=== PATIENT | female | born 1955 | race Caucasian/White ===

== ENCOUNTER 2016-12-18 08:57 | Emergency (ER) | payer OTHER ==
[2016-12-18 09:09] VITALS: BMI 29.0
[2016-12-18] MEDS ORDERED: guaiFENesin/CODEINE 10 ML UNIT-DOSE CUPS PO ONE (10:02)
[2016-12-18] MEDS ORDERED: guaiFENesin/CODEINE 5 ML UNIT-DOSE CUPS PO ONE (10:11)
--- NOTE | 2016-12-18 10:29 | PDOC ---
History of Present Illness - General Chief Complaint: Shortness of Breath Stated Complaint: COUGH, NAUEA, FEVER, CONGESTION Time Seen by Provider: 12/18/16 09:48 History Source: Patient Exam Limitations: No Limitations - History of Present Illness Initial Comments: 12/18/16 10:32 61-year-old female brought in with family for evaluation of ongoing cough for the past 3 weeks worsening in severity over the past 5 days patient complaints of dry hacking cough worse in the evening and states has had no fever, hemoptysis but does complain of chills intermittently. Patient states history of hypertension and dyslipidemia and is followed by Dr. Reed who she has not seen since onset of symptoms. Patient denies weight loss, recent travel, recent sick contacts, chest pain, lower extremity edema, or cardiac history. Timing/Duration: reports: other (3 weeks cough) Severity: reports: moderate Possible Cause: Yes: no prior episodes Modifying Factors: improves with: coughing Past History - Past Medical History Allergies/Adverse Reactions: Allergies Allergy/AdvReac Type Severity Reaction Status Date / Time No Known Allergies Allergy Verified 12/18/16 09:04 Home Medications: Ambulatory Orders Amlodipine Besylate 10 mg PO DAILY 12/18/16 Benzonatate 100 mg PO TID 12/18/16 Naproxen [Naprosyn -] 500 mg PO BID 12/18/16 Simvastatin 40 mg PO DAILY 12/18/16 Anemia: No Asthma: No Cancer: No Cardiac Disorders: No CVA: No COPD: No CHF: No Dementia: No Diabetes: No GI Disorders: No Disorders: No HTN: Yes Hypercholesterolemia: Yes Liver Disease: No Seizures: No Thyroid Disease: No - Surgical History Abdominal Surgery: Yes Appendectomy: No Cardiac Surgery: No Cholecystectomy: No Lung Surgery: No Neurologic Surgery: No Orthopedic Surgery: No - Psycho/Social/Smoking Cessation Hx Anxiety: No Suicidal Ideation: No Smoking History: Never smoked Have you smoked in the past 12 months: No Information on smoking cessation initiated: No Hx Alcohol Use: No Drug/Substance Use Hx: No Substance Use Type: None Patient Lives Alone: No Lives with/in: spouse/SO Review of Systems - Review of Systems Able to Perform ROS?: Yes Constitutional: Yes: Chills. No: Fever, Loss of Appetite, Malaise, Night Sweats HEENTM: No: Symptoms Reported Respiratory: Yes: Cough. No: Shortness of Breath, Wheezing, Productive cough, Hemoptysis Cardiac (ROS): No: Symptoms Reported ABD/GI: No: Symptoms Reported : No: Symptoms Reported Musculoskeletal: No: Symptoms Reported Integumentary: No: Symptoms Reported Neurological: No: Symptoms reported *Physical Exam - Vital Signs Last Vital Signs Temp Pulse Resp BP Pulse Ox 98.3 F 93 H 18 121/81 99 12/18/16 09:06 12/18/16 09:06 12/18/16 09:06 12/18/16 09:06 12/18/16 09:06 - Physical Exam General Appearance: Yes: Nourished, Appropriately Dressed. No: Apparent Distress HEENT: positive: EOMI, NORBERT, Pharynx Normal. negative: Pale Conjunctivae Neck: positive: Normal Thyroid, Supple Respiratory/Chest: positive: Crackles (inspiratory with rhonchi to left lower base). negative: Chest Tender, Respiratory Distress, Accessory Muscle Use Cardiovascular: positive: Regular Rhythm, Regular Rate. negative: Murmur Gastrointestinal/Abdominal: positive: Soft. negative: Tenderness Extremity: negative: Pedal Edema Integumentary: positive: Normal Color, Warm, Moist Neurologic: positive: Motor Strength 5/5 ( ambulatory) ED Treatment Course - LABORATORY CBC & Chemistry Diagram: 12/18/16 10:06 12/18/16 10:39 - RADIOLOGY Radiology Studies Ordered: Category Date Time Status CHEST X-RAY PORTABLE* [RAD] Stat Radiology 12/18/16 10:02 Ordered Medical Decision Making - Medical Decision Making 12/18/16 10:41 Patient with persistent but worsening cough x 3 weeks with chills moccasins, weight loss, or night sweats. Patient he would dry hacking cough on exam. Patient had inspiratory crackles/rhonchi to the left lower base concerning for pneumonia. Patient ordered for labs, x-ray, Robitussin with codeine and will order saline nebulizer if no improvement. 12/18/16 11:52 Laboratory Tests 12/18/16 12/18/16 10:06 10:39 WBC 5.0 Hgb 13.6 Hct 40.1 Plt Count 232 Neutrophils % 45.0 Sodium 138 Potassium 3.8 Chloride 100 Carbon Dioxide 27 Anion Gap 11 BUN 11 Creatinine 0.7 Creat Clearance w eGFR > 60 Random Glucose 94 Calcium 8.9 Total Bilirubin 0.4 AST 25 ALT 28 Laboratory Tests 12/18/16 10:06 Monocytes % 16.4 H Chest x-ray shows no acute findings. Patient states when better after receiving the Robitussin with codeine and saline nebulizer. Patient ordered for monoscreen secondary to elevated monocytes. 12/18/16 13:40 Laboratory Tests 12/18/16 12:02 Monoscreen Negative Patient states feeling much better after receiving the above medication will discharge patient home with azithromycin inhaler and Robitussin with codeine for treatment of acute bronchitis. *DC/Admit/Observation/Transfer Diagnosis at time of Disposition: Bronchitis - Discharge Dispostion Disposition: HOME Condition at time of disposition: Improved - Referrals Referrals: Inderjit Reed MD [Primary Care Provider] - - Patient Instructions Printed Discharge Instructions: DI for Acute Bronchitis Additional Instructions: Please take antibiotics as prescribed use inhaler as needed for coughing and use Robitussin with codeine to control your cough. Follow-up with Dr. Reed on Saturday. Drink plenty of fluids and rest Your voice.
[2016-12-18] MEDS ORDERED: SODIUM CHLORIDE FOR INHALATION 3 ML VIAL.NEB IH ONE (10:33)
[2016-12-18 11:05] LABS: BASOPHIL 0.8 % (0-2.0); EOSINOPHIL 1.8 % (0-4.5); MCH 28.4 pg (25.7-33.7); MCHC 33.8 g/dl (32.0-36.0); MEAN CELL VOLUME 84.1 fl (80-96); MEAN PLT VOLUME 8.1 fl (7.5-11.1); PLATELET COUNT 232 K/MM3 (134-434); RDW 14.5 % (11.6-15.6)
[2016-12-18 11:21] LABS: ALBUMIN 3.7 g/dl (3.4-5.0); ANION GAP 11 (8-16); CALCIUM 8.9 mg/dL (8.5-10.1); CO2 27 mmol/L (21-32); CREATININE 0.7 mg/dL (0.55-1.02); GLUCOSE,RANDOM 94 mg/dL (74-106); SGOT/AST 25 U/L (15-37); SGPT/ALT 28 U/L (12-78)
[2016-12-18 11:23] LABS: ALK PHOS 89 U/L (45-117); BILIRUBIN,TOTAL 0.4 mg/dL (0.2-1.0); TOT PROT 7.5 g/dl (6.4-8.2)
[2016-12-18 13:49] VITALS: BP 127/60; PULSE 90; TEMP 98.7
--- NOTE | 2016-12-20 07:59 | PDOC ---
*Physical Exam - Vital Signs Last Vital Signs Temp Pulse Resp BP Pulse Ox 98.7 F 90 18 127/60 97 12/18/16 13:48 12/18/16 13:48 12/18/16 13:48 12/18/16 13:48 12/18/16 13:48 - Physical Exam Comments: 12/20/16 07:58 MIDLEVEL NOTE Pt seen by Midlevel Provider under my direct supervision. Pt interviewed and examined. Ancillary studies reviewed. I agree with plan as outlined by Midlevel Provider. Chest x-ray-NAD Laboratory Tests 12/18/16 12/18/16 12/18/16 10:06 10:39 12:02 WBC 5.0 RBC 4.77 Hgb 13.6 Hct 40.1 MCV 84.1 MCHC 33.8 RDW 14.5 Plt Count 232 MPV 8.1 Neutrophils % 45.0 Lymphocytes % 36.0 Monocytes % 16.4 H Eosinophils % 1.8 Basophils % 0.8 Sodium 138 Potassium 3.8 Chloride 100 Carbon Dioxide 27 Anion Gap 11 BUN 11 Creatinine 0.7 Creat Clearance w eGFR > 60 Random Glucose 94 Calcium 8.9 Total Bilirubin 0.4 AST 25 ALT 28 Alkaline Phosphatase 89 Total Protein 7.5 Albumin 3.7 Monoscreen Negative Vital Signs (72 hours) 12/18/16 12/18/16 09:06 13:48 Temperature 98.3 F 98.7 F Pulse Rate 93 H Pulse Rate [ 90 Apical] Respiratory 18 18 Rate Blood Pressure 121/81 Blood Pressure 127/60 [Right Arm] O2 Sat by Pulse 99 97 Oximetry (%) Impression-acute wheezy bronchitis ED Treatment Course - LABORATORY CBC & Chemistry Diagram: 12/18/16 10:06 12/18/16 10:39 - ADDITIONAL ORDERS Additional order review: 12/18/16 10:15 Blood Culture - Preliminary Blood - Peripheral Venous NO GROWTH OBTAINED AFTER 24 HOURS, INCUBATION TO CONTINUE FOR 4 DAYS. 12/18/16 10:38 Blood Culture - Preliminary Blood - Peripheral Venous NO GROWTH OBTAINED AFTER 24 HOURS, INCUBATION TO CONTINUE FOR 4 DAYS. 12/18/16 10:06 RBC 4.77 MCV 84.1 MCHC 33.8 RDW 14.5 MPV 8.1 Neutrophils % 45.0 Lymphocytes % 36.0 Monocytes % 16.4 H Eosinophils % 1.8 Basophils % 0.8 - Medications Given in the ED: ED Medications Discontinued Medications Generic Name Dose Route Start Last Admin Trade Name Brendenq PRN Reason Stop Dose Admin Guaifenesin/Codeine Phosphate 10 ml 12/18/16 10:02 12/18/16 10:17 Robitussin Ac - PO 12/18/16 10:03 10 ml ONCE ONE Administration Sodium Chloride 3 ml 12/18/16 10:33 12/18/16 10:45 Normal Saline For Inhalation - IH 12/18/16 10:34 3 ml ONCE ONE Administration *DC/Admit/Observation/Transfer Diagnosis at time of Disposition: Bronchitis - Discharge Dispostion Disposition: HOME Condition at time of disposition: Improved - Prescriptions Prescriptions: Guaifenesin AC [Robitussin AC] 10 ml PO QID PRN #100 ml MDD 40 PRN Reason: Cough Albuterol Sulfate Inhaler - [Ventolin HFA Inhaler -] 1 - 2 inh PO Q4H PRN #1 inhaler PRN Reason: Cough Azithromycin [Zithromax Tri-Alfonzo (3 DAYS) -] 500 mg PO DAILY #3 tablet - Referrals Referrals: Inderjit Reed MD [Primary Care Provider] - - Patient Instructions Printed Discharge Instructions: DI for Acute Bronchitis Additional Instructions: Please take antibiotics as prescribed use inhaler as needed for coughing and use Robitussin with codeine to control your cough. Follow-up with Dr. Reed on Saturday. Drink plenty of fluids and rest Your voice. - Post Discharge Activity
== END 2016-12-18 13:51 | disposition home or self-care (01) ==
LOC: JER 08:57
PROC: 3E0337Z Introduction of Electrolytic and Water Balance Substance into Peripheral Vein, Percutaneous Approach (ICD-10-PCS; principal; 2016-12-18)
DX: J40 Bronchitis, not specified as acute or chronic (principal); I10 Essential (primary) hypertension; E78.00 Pure hypercholesterolemia, unspecified
CPT/HCPCS: 36415; 71010-TC; 80053; 85025; 86308; 87040; 94640; 99283-25

== ENCOUNTER 2016-12-26 15:40 | Emergency (ER) | payer OTHER ==
[2016-12-26 15:47] VITALS: BMI 27.3
[2016-12-26] MEDS ORDERED: dilTIAZem HCL 50 MG/10 ML - 10 ML VIAL IVPUSH ONE (16:22)
[2016-12-26] MEDS ORDERED: DILTIAZEM INJECTION 125 MG in DEXTROSE 5%-WATER - 100 ML IVPB SCH (16:30)
[2016-12-26 16:45] LABS: BASOPHIL 0.9 % (0-2.0); EOSINOPHIL 1.5 % (0-4.5); MCH 27.9 pg (25.7-33.7); MCHC 33.7 g/dl (32.0-36.0); MEAN CELL VOLUME 82.9 fl (80-96); MEAN PLT VOLUME 7.4 fl (7.5-11.1); NEUTROPHILS 48.4 % (42.8-82.8); PLATELET COUNT 263 K/MM3 (134-434); RDW 14.6 % (11.6-15.6); WHITE BLOOD COUNT 4.7 K/mm3 (4.0-10.0)
[2016-12-26 17:29] LABS: ALBUMIN 3.5 g/dl (3.4-5.0); ANION GAP 13 (8-16); CALCIUM 8.5 mg/dL (8.5-10.1); CO2 24 mmol/L (21-32); CREATININE 0.7 mg/dL (0.55-1.02); GLUCOSE,RANDOM 93 mg/dL (74-106); SGOT/AST 25 U/L (15-37); SGPT/ALT 32 U/L (12-78)
[2016-12-26 17:31] LABS: ALK PHOS 84 U/L (45-117); BILIRUBIN,TOTAL 0.3 mg/dL (0.2-1.0); TOT PROT 7.3 g/dl (6.4-8.2)
[2016-12-26 17:50] LABS: TROPONIN I < 0.02 ng/ml (0.00-0.05)
[2016-12-26 18:27] LABS: INR 1.14 (0.82-1.09); PROTHROMBIN TIME (PATIENT) 12.6 SEC (9.98-11.88)
[2016-12-26] MEDS ORDERED: methylPREDNISolone NA SUCC 125 MG/2 ML VIAL ONE (18:52)
[2016-12-26] MEDS ORDERED: ALBUTEROL SO4 2.5/IPRATROPIUM 0.5 INH SOL 3 ML VIAL.NEB. NEB ONE ×2 (18:52→18:55)
[2016-12-26] MEDS ORDERED: ALBUTEROL SO4 0.083% IH SOL 2.5 MG/3 ML VIAL.NEB. NEB ONE (18:55)
[2016-12-26] MEDS ORDERED: methylPREDNISolone NA SUCC 125 MG/2 ML VIAL IVPB ONE (19:00)
--- NOTE | 2016-12-26 20:02 | PDOC ---
History of Present Illness - General History Source: Patient, Family Exam Limitations: No Limitations - History of Present Illness Initial Comments: 12/26/16 16:44 The patient is a 61-year-old woman, with a significant past medical history of hypertension and hypercholesterolemia who presents to the emergency department for further evaluation of a persistent constant dry cough for the past 3 weeks. She was in this ED on 12/18 for a cough for which she underwent a Chest X-Ray and it revealed an acute bronchitis and was discharged on Azithromycin and Albuterol. Despite compliance with her medication, she reports that her symptoms have worsen, as she now experiences pleuritic chest pain and nausea. She also reports vomiting but attributes it to her constant cough. She also notes that she feels warm. No chills, weakness. No lightheadedness, dizziness, palpitations, headache. No urinary complaints, Allergies: No Known Drug Allergies. Past Surgical History: Abdominal Surgery Social History: No tobacco, ETOH and recreational drug use, Primary Care Physician: Dr. Inderjit Burton [phone] <Melvi Taveras - Last Filed: 12/26/16 21:15> <Mayank Christianson - Last Filed: 12/26/16 21:30> - General Chief Complaint: Respiratory Stated Complaint: COUGH, FEVER, VOMITING Time Seen by Provider: 12/26/16 16:19 Past History <Melvi Taveras - Last Filed: 12/26/16 21:15> - Past Medical History Anemia: No Asthma: No Cancer: No Cardiac Disorders: No CVA: No COPD: No CHF: No Dementia: No Diabetes: No GI Disorders: No Disorders: No HTN: Yes Hypercholesterolemia: Yes Liver Disease: No Seizures: No Thyroid Disease: No - Surgical History Abdominal Surgery: Yes Appendectomy: No Cardiac Surgery: No Cholecystectomy: No Lung Surgery: No Neurologic Surgery: No Orthopedic Surgery: No - Psycho/Social/Smoking Cessation Hx Anxiety: No Suicidal Ideation: No Smoking History: Never smoked Have you smoked in the past 12 months: No Information on smoking cessation initiated: No Hx Alcohol Use: No Drug/Substance Use Hx: No Substance Use Type: None <Mayank Christianson - Last Filed: 12/26/16 21:30> - Past Medical History Allergies/Adverse Reactions: Allergies Allergy/AdvReac Type Severity Reaction Status Date / Time No Known Allergies Allergy Verified 12/26/16 15:42 Home Medications: Ambulatory Orders Amlodipine Besylate 10 mg PO DAILY 12/18/16 Simvastatin 40 mg PO DAILY 12/18/16 Methylprednisolone [Medrol Dose Alfonzo] 4 mg PO ASDIR #21 tablet 12/26/16 Promethazine/Phenyleph/Codeine [Phenergan VC+Codeine Syrup] 5 ml PO QID #200 ml MDD 20 12/26/16 Review of Systems - Review of Systems Able to Perform ROS?: Yes Comments:: 12/26/16 16:44 GENERAL/CONSTITUTIONAL: No fever or chills. No weakness. HEAD, EYES, EARS, NOSE AND THROAT: No change in vision. No ear pain or discharge. No sore throat. CARDIOVASCULAR: Yes: Shortness of breath. No chest pain. RESPIRATORY: Yes: Cough. No cough, wheezing, or hemoptysis. GASTROINTESTINAL: Yes: Nausea. Vomtiing (due to constant cough) No diarrhea or constipation. GENITOURINARY: No dysuria, frequency, or change in urination. MUSCULOSKELETAL: No joint or muscle swelling or pain. No neck or back pain. SKIN: No rash NEUROLOGIC: No headache, vertigo, loss of consciousness, or change in strength/ sensation. ENDOCRINE: No increased thirst. No abnormal weight change. HEMATOLOGIC/LYMPHATIC: No anemia, easy bleeding, or history of blood clots. ALLERGIC/IMMUNOLOGIC: No hives or skin allergy. <Melvi Taveras - Last Filed: 12/26/16 21:15> *Physical Exam - Vital Signs Last Vital Signs Temp Pulse Resp BP Pulse Ox 98.6 F 82 18 126/77 98 12/26/16 19:00 12/26/16 19:00 12/26/16 19:00 12/26/16 19:00 12/26/16 19:00 - Physical Exam Comments: 12/26/16 16:44 GENERAL: Awake, alert, and fully oriented, in no acute distress HEAD: No signs of trauma EYES: PERRLA, EOMI, sclera anicteric, conjunctiva clear ENT: Auricles normal inspection, hearing grossly normal, nares patent, oropharynx clear without exudates. Moist mucosa NECK: Normal ROM, supple, no lymphadenopathy, JVD, or masses LUNGS: Breath sounds equal, clear to auscultation bilaterally. No wheezes, and no crackles HEART: Regular rate and rhythm, normal S1 and S2, no murmurs, rubs or gallops ABDOMEN: Soft, nontender, normoactive bowel sounds. No guarding, no rebound. No masses EXTREMITIES: Normal range of motion, no edema. No clubbing or cyanosis. No cords, erythema, or tenderness NEUROLOGICAL: Cranial nerves II through XII grossly intact. Normal speech <Melvi Taveras - Last Filed: 12/26/16 21:15> - Vital Signs Last Vital Signs Temp Pulse Resp BP Pulse Ox 98.6 F 82 18 126/77 98 12/26/16 19:00 12/26/16 19:00 12/26/16 19:00 12/26/16 19:00 12/26/16 19:00 <Mayank Christianson - Last Filed: 12/26/16 21:30> Heart Score/ECG Review #1 12/26/16 16:59 EKG read and interpreted by me at 16:59 IMPRESSION: Sinus rhythm with premature atrial complexes. Possible left atrial enlargement. No acute ST ischemia or infarct. No prior EKG obtainable for comparison. <Melvi Taveras - Last Filed: 12/26/16 21:15> ED Treatment Course - LABORATORY CBC & Chemistry Diagram: 12/26/16 16:35 12/26/16 16:35 - ADDITIONAL ORDERS Additional order review: Laboratory Results 12/26/16 12/26/16 12/26/16 17:20 17:20 16:35 INR Sodium 139 Potassium 3.5 Chloride 102 Carbon Dioxide 24 Anion Gap 13 BUN 13 Creatinine 0.7 Creat Clearance w eGFR > 60 Random Glucose 93 Calcium 8.5 Total Bilirubin 0.3 D AST 25 ALT 32 Alkaline Phosphatase 84 Creatine Kinase 237 H CK-MB (CK-2) 2.170 Troponin I < 0.02 B-Natriuretic Peptide 28.04 Total Protein 7.3 Albumin 3.5 12/26/16 16:35 INR 1.14 Sodium Potassium Chloride Carbon Dioxide Anion Gap BUN Creatinine Creat Clearance w eGFR Random Glucose Calcium Total Bilirubin AST ALT Alkaline Phosphatase Creatine Kinase CK-MB (CK-2) Troponin I B-Natriuretic Peptide Total Protein Albumin 12/26/16 16:35 RBC 4.84 MCV 82.9 MCHC 33.7 RDW 14.6 MPV 7.4 L Neutrophils % 48.4 Lymphocytes % 38.3 Monocytes % 10.9 H Eosinophils % 1.5 Basophils % 0.9 - RADIOLOGY Radiograph Interpretation: 12/26/16 20:34 RAD/CHEST X-RAY PORTABLE IMPRESSION: In comparison to a previous radiographic study on 12/18/2016, interval development of minimal to mid left basilar opacity is seen adjacent to the cardiac apex which may be on the basis of mild atelectasis versus a marilu small infiltrate. No pleural effusion is identified. - Medications Given in the ED: ED Medications Discontinued Medications Generic Name Dose Route Start Last Admin Trade Name Freq PRN Reason Stop Dose Admin Albuterol Sulfate 1 amp 12/26/16 18:55 12/26/16 19:07 Ventolin 0.083% Nebulizer Soln - NEB 12/26/16 18:56 1 amp ONCE ONE Administration Albuterol/Ipratropium 1 amp 12/26/16 18:55 12/26/16 19:16 Duoneb - NEB 12/26/16 18:56 1 amp ONCE ONE Administration Diltiazem HCl 20 mg 12/26/16 16:22 12/26/16 16:38 Cardizem Injection - IVPUSH 12/26/16 16:23 Not Given ONCE ONE Methylprednisolone Sodium Succinate 125 mg 12/26/16 19:00 12/26/16 19:07 Solu-Medrol - IVPB 12/26/16 19:01 125 mg ONCE ONE Administration <Melvi Taveras - Last Filed: 12/26/16 21:15> - LABORATORY CBC & Chemistry Diagram: 12/26/16 16:35 12/26/16 16:35 - ADDITIONAL ORDERS Additional order review: Laboratory Results 12/26/16 12/26/16 12/26/16 17:20 17:20 16:35 INR Sodium 139 Potassium 3.5 Chloride 102 Carbon Dioxide 24 Anion Gap 13 BUN 13 Creatinine 0.7 Creat Clearance w eGFR > 60 Random Glucose 93 Calcium 8.5 Total Bilirubin 0.3 D AST 25 ALT 32 Alkaline Phosphatase 84 Creatine Kinase 237 H CK-MB (CK-2) 2.170 Troponin I < 0.02 B-Natriuretic Peptide 28.04 Total Protein 7.3 Albumin 3.5 12/26/16 16:35 INR 1.14 Sodium Potassium Chloride Carbon Dioxide Anion Gap BUN Creatinine Creat Clearance w eGFR Random Glucose Calcium Total Bilirubin AST ALT Alkaline Phosphatase Creatine Kinase CK-MB (CK-2) Troponin I B-Natriuretic Peptide Total Protein Albumin 12/26/16 16:35 RBC 4.84 MCV 82.9 MCHC 33.7 RDW 14.6 MPV 7.4 L Neutrophils % 48.4 Lymphocytes % 38.3 Monocytes % 10.9 H Eosinophils % 1.5 Basophils % 0.9 - RADIOLOGY Radiology Studies Ordered: Category Date Time Status CHEST X-RAY PORTABLE* [RAD] Stat Radiology 12/26/16 16:22 Completed - Medications Given in the ED: ED Medications Discontinued Medications Generic Name Dose Route Start Last Admin Trade Name Freq PRN Reason Stop Dose Admin Albuterol Sulfate 1 amp 12/26/16 18:55 12/26/16 19:07 Ventolin 0.083% Nebulizer Soln - NEB 12/26/16 18:56 1 amp ONCE ONE Administration Albuterol/Ipratropium 1 amp 12/26/16 18:55 12/26/16 19:16 Duoneb - NEB 12/26/16 18:56 1 amp ONCE ONE Administration Diltiazem HCl 20 mg 12/26/16 16:22 12/26/16 16:38 Cardizem Injection - IVPUSH 12/26/16 16:23 Not Given ONCE ONE Methylprednisolone Sodium Succinate 125 mg 12/26/16 19:00 12/26/16 19:07 Solu-Medrol - IVPB 12/26/16 19:01 125 mg ONCE ONE Administration <Mayank Christianson - Last Filed: 12/26/16 21:30> *DC/Admit/Observation/Transfer - Attestations Scribe Attestion: 12/26/16 16:44 Documentation prepared by Melvi Taveras, acting as medical technologist prn for Mayank Christianson DO. <Melvi Taveras - Last Filed: 12/26/16 21:15> - Discharge Dispostion Admit: No - Attestations Physician Attestion: 12/26/16 20:02 I, Dr. Mayank Christianson, attest that this document has been prepared under my direction and personally reviewed by me in its entirety. I further attest, that it accurately reflects all work, treatment, procedures and medical decision -making performed by me. <Mayank Christianson - Last Filed: 12/26/16 21:30> Diagnosis at time of Disposition: Acute bronchitis Qualifiers: Bronchitis organism: unspecified organism Qualified Code(s): J20.9 - Acute bronchitis, unspecified - Discharge Dispostion Disposition: HOME Condition at time of disposition: Good - Prescriptions Prescriptions: Methylprednisolone [Medrol Dose Alfonzo] 4 mg PO ASDIR #21 tablet Promethazine/Phenyleph/Codeine [Phenergan VC+Codeine Syrup] 5 ml PO QID #200 ml MDD 20 - Referrals Referrals: Inderjit Reed MD [Primary Care Provider] - - Patient Instructions Printed Discharge Instructions: DI for Acute Bronchitis Additional Instructions: Chitra- Start the steroids tomorrow- Start the antibiotic tomorrow as well. Phenergan with Codine is your cough syrup
[2016-12-26] MEDS ORDERED: CODEINE SO4 30 MG TABLET ONE (21:07)
[2016-12-26] MEDS ORDERED: ONDANSETRON *ODT* 4 MG TABLET ONE (21:07)
[2016-12-26] MEDS ORDERED: CODEINE SO4 30 MG TABLET PO ONE (21:36)
[2016-12-26] MEDS ORDERED: ONDANSETRON *ODT* 4 MG TABLET SL ONE (21:36)
[2016-12-26 21:40] VITALS: BP 131/81; PULSE 78; TEMP 98.5
--- NOTE | 2016-12-27 16:17 | EKG ---
Test Reason : Blood Pressure : / mmHG Vent. Rate : 090 BPM Atrial Rate : 090 BPM P-R Int : 152 ms QRS Dur : 088 ms QT Int : 376 ms P-R-T Axes : 062 013 024 degrees QTc Int : 459 ms SINUS RHYTHM WITH PREMATURE ATRIAL COMPLEXES POSSIBLE LEFT ATRIAL ENLARGEMENT BORDERLINE ECG NO PREVIOUS ECGS AVAILABLE Confirmed by ANTHONY JENNINGS, PAPA ([id number]) on 12/27/2016 4:17:03 PM Referred By: Confirmed By:PAPA CRUZ MD
== END 2016-12-26 21:40 | disposition home or self-care (01) ==
LOC: JER 15:40
PROC: 3E0F7GC Introduction of Other Therapeutic Substance into Respiratory Tract, Via Natural or Artificial Opening (ICD-10-PCS; principal; 2016-12-26)
PROC: 3E0F7GC Introduction of Other Therapeutic Substance into Respiratory Tract, Via Natural or Artificial Opening (ICD-10-PCS; 2016-12-26)
PROC: 3E0333Z Introduction of Anti-inflammatory into Peripheral Vein, Percutaneous Approach (ICD-10-PCS; 2016-12-26)
DX: I10 Essential (primary) hypertension (principal); E78.00 Pure hypercholesterolemia, unspecified
CPT/HCPCS: 36415; 71010-TC; 80053; 82550; 82553; 83880; 84484; 85025; 85610; 93005; 93010; 94640; 96374; 99285-25

== ENCOUNTER 2019-09-10 20:55 | Emergency (ER) | payer OTHER ==
--- NOTE | 2019-09-10 21:06 | PDOC ---
History of Present Illness - General Stated Complaint: LACERATION Time Seen by Provider: 09/10/19 21:04 - History of Present Illness Initial Comments: HPI: 63yo F with PMH of HTN, HLD, varicose veins s/p laser procedure about one year ago presenting with bleeding. Patient states that around 8:20pm, she was cooking at the stove when she looked down and noticed "a lot" of blood spurting from her leg. She yelled for her son and he came and applied a pressure dressing. Last tetanus shot was about ten years ago. Patient denies injuring herself. Did not syncopize. Denies history of bleeding problems. Not on anticoagulants. Denies fever, but endorses chills. PCP: Dr. Daniel Posadas ROS: Constitutional: no fever, +chills HEENT: no throat pain, no dysphagia Cardiovascular: no leg swelling, no palpitations Respiratory: no congestion, no shortness of breath Gastrointestinal: no abdominal pain, no nausea Genitourinary: no dysuria, no hematuria Musculoskeletal: no myalgia, no arthralgia Skin: no rash, no itching Neurologic: no headache, no syncope PE: General: Awake, alert, and fully oriented, anxious Head: No signs of trauma Eyes: EOMI, sclera anicteric ENT: Moist mucus membranes Neck: Normal ROM, supple Lungs: Lungs clear, Normal breath sounds Cardio: Regular rhythm, S1 and S2 present Abdomen: Soft, nontender. No guarding, no rebound, no masses Extremities: Normal range of motion, Distal pulses present SKIN: Mottled skin of BLE with superficial laceration on medial right lower leg with pinpoint oozing bleed with no surrounding erythema/induration/warmth; otherwise warm, dry, normal turgor Neurologic: Cranial nerves II through XII grossly intact. Normal speech ED Course/MDM: DDX including but not limited to laceration, abscess, venous stasis Exam consistent with laceration with pinpoint oozing bleed on medial right lower leg Bacitracin and pressure dressing applied Laceration cleaned with normal saline applied at high pressure Patient with nonspecific complaints of weakness and dizziness, however, appears very anxious from the bleeding episode. Also reports chest pain upon review of symptoms, but states this is unchanged from her baseline. Decision made to walk the patient and in the event she is symptomatic, we will consider further workup. Boostrix Will reassess 09/10/19 22:05 Patient able to ambulate at baseline without difficulty Wound is now hemostatic Return precautions given Mupirocin sent to pharmacy Stable for discharge 09/10/19 22:47 Past History - Past Medical History Allergies/Adverse Reactions: Allergies Allergy/AdvReac Type Severity Reaction Status Date / Time No Known Allergies Allergy Verified 12/26/16 15:42 Home Medications: Ambulatory Orders Amlodipine Besylate 10 mg PO DAILY 12/18/16 Gabapentin [Neurontin] 1 tab PO DAILY 04/01/17 Ropinirole HCl 1 tab PO DAILY 04/01/17 Atorvastatin Ca [Lipitor] 40 mg PO HS 09/10/19 Losartan Potassium 12.5 mg PO DAILY 09/10/19 Mupirocin Ointment [Bactroban 2% Ointment -] 1 applic TP BID #1 tube 09/10/19 Anemia: No Asthma: No Cancer: No Cardiac Disorders: No CVA: No COPD: No CHF: No Dementia: No Diabetes: No GI Disorders: No Disorders: No HTN: Yes Hypercholesterolemia: Yes Liver Disease: No Seizures: No Thyroid Disease: No - Surgical History Abdominal Surgery: Yes Appendectomy: No Cardiac Surgery: No Cholecystectomy: No Lung Surgery: No Neurologic Surgery: No Orthopedic Surgery: No - Psycho Social/Smoking Cessation Hx Smoking History: Never smoked Have you smoked in the past 12 months: No Hx Alcohol Use: No Drug/Substance Use Hx: No Substance Use Type: None Discharge - Discharge Information Problems reviewed: Yes Clinical Impression/Diagnosis: Laceration Condition: Stable Disposition: HOME - Additional Discharge Information Prescriptions: Mupirocin Ointment [Bactroban 2% Ointment -] 1 applic TP BID #1 tube - Follow up/Referral Referrals: Inderjit Reed MD [Staff Physician] - - Patient Discharge Instructions Patient Printed Discharge Instructions: DI for Minor Laceration Additional Instructions: You came to the emergency department because of bleeding. We placed pressure and a stitch to stop the bleeding. We gave you a shot called Boostrix, also called TDAP, to cover you for tetanus. Do not remove the pressure dressing for 24-36 hours. You can check the dressing after that time. You can place an antibiotic ointment to the area twice a day to prevent infection. Mild oozing of bleeding can be expected. Immediate medical attention is required if experience: profuse bleeding, redness or hardness around the wound, bleeding, pain or tenderness, a red streak, yellow or green discharge oozing from the wound, fever or chills. If you think there is an emergency, call for emergency medical services or present to the emergency department right away === Llegaste al departamento de emergencias por sangrado. Pusimos presin y bill puntada para detener el sangrado. Le pusimos bill inyeccin llamada Boostrix, tambin llamada TDAP, para cubrir el ttanos. No quite el vendaje de presin sudhakar 24-36 horas. Puede revisar el vendaje despus de joel tiempo. Puede colocar un ungento antibitico en el yuli dos veces al da para prevenir la infeccin. Se puede esperar bill leve exudacin de sangrado. Se requiere atencin mdica inmediata si tiene experiencia: sangrado abundante, enrojecimiento o dureza alrededor de la herida, sangrado, dolor o sensibilidad, bill rajiv bhargavi, secrecin amarilla o salomon que sale de la herida, fiebre o escalofros. Si aurelio que hay bill emergencia, llame a los servicios mdicos de emergencia o presntese de inmediato en el departamento de emergencias. Print Language: [place] - Post Discharge Activity
[2019-09-10 21:51] VITALS: BP 121/69; PULSE 76; TEMP 98.4; BMI 27.3
[2019-09-10] MEDS ORDERED: BACITRACIN 0.9 GM PACKET ONE (21:53)
[2019-09-10] MEDS ORDERED: BACITRACIN 15 GM TUBE TOPICAL OINTMENT TP ONE (22:06)
[2019-09-10] MEDS ORDERED: TETANUS AND DIPHTHERIA TOXOID 0.5 ML DISP.SYRIN IM ONE (22:06)
[2019-09-10] MEDS ORDERED: DIPHTH,PERTUSS(ACELL),TET 0.5 ML DISP.SYRIN IM ONE ×2 (22:06→22:19)
--- NOTE | 2019-09-10 22:14 | PDOC ---
Attending Attestation - Resident Resident Name: Guillermina Cordova - ED Attending Attestation I have performed the following: I have examined & evaluated the patient, The case was reviewed & discussed with the resident, I agree w/resident's findings & plan, Exceptions are as noted - HPI HPI: 09/11/19 00:22 See resident HPI - Physicial Exam PE: 09/11/19 00:22 Agree with exam as documented by resident - Medical Decision Making 09/11/19 00:22 ?traumatic wound, not on ac Superficial wound with slow ooze clean then re-examine wound apply clean dressing Ambulatory w/o issues DC home with return precaution
[2019-09-11] MEDS ORDERED: DIPHTH,PERTUSS(ACELL),TET 0.5 ML DISP.SYRIN IM ONE (22:17)
== END 2019-09-10 23:05 | disposition home or self-care (01) ==
LOC: JER 20:55
PROC: 0HQKXZZ Repair Right Lower Leg Skin, External Approach (ICD-10-PCS; principal; 2019-09-10)
PROC: 3E0234Z Introduction of Serum, Toxoid and Vaccine into Muscle, Percutaneous Approach (ICD-10-PCS; 2019-09-10)
DX: S81.811A Laceration without foreign body, right lower leg, initial encounter (principal); X58.XXXA Exposure to other specified factors, initial encounter; Y93.9 Activity, unspecified; Y92.030 Kitchen in apartment as the place of occurrence of the external cause; Y99.8 Other external cause status; I10 Essential (primary) hypertension; E78.5 Hyperlipidemia, unspecified; Z86.79 Personal history of other diseases of the circulatory system
CPT/HCPCS: 99282-25

== ENCOUNTER 2023-06-03 18:59 | Emergency (ER) | payer OTHER ==
[2023-06-03 19:07] VITALS: BP 125/78; PULSE 72; RESP 18; TEMP 97.9; BMI 28.1
== END 2023-06-03 20:56 | disposition home or self-care (01) ==
LOC: JERFT 18:59
DX: R42 Dizziness and giddiness (principal); T17.828A Food in other parts of respiratory tract causing other injury, initial encounter
CPT/HCPCS: 93005; 93010; 99283-25

== ENCOUNTER 2023-12-08 08:17 | Emergency (ER) | payer MEDICARE, OTHER ==
[2023-12-08 08:31] VITALS: TEMP 97.3; BMI 26.3
[2023-12-08] MEDS ORDERED: ACETAMINOPHEN 325 MG TABLET (FP) ONE (10:03)
[2023-12-08] MEDS ORDERED: LIDOCAINE 4% PATCH TP ONE (10:03)
[2023-12-08] MEDS: LIDOCAINE 4% PATCH TP ONE (10:06)
[2023-12-08] MEDS: ACETAMINOPHEN 500 MG TABLET (FP) PO ONE (10:06)
[2023-12-08] MEDS ORDERED: KETOROLAC TROMETHAMINE 30 MG/1 ML VIAL ONE (12:33)
[2023-12-08] MEDS: KETOROLAC TROMETHAMINE 30 MG/1 ML VIAL IM ONE (12:38)
[2023-12-08 13:40] VITALS: BP 118/60; PULSE 66; RESP 15
[2023-12-08] MEDS ORDERED: LIDOCAINE PATCH REMOVAL MC SCH (22:00)
== END 2023-12-08 13:57 | disposition home or self-care (01) ==
LOC: JER 08:17
PROC: 3E0233Z Introduction of Anti-inflammatory into Muscle, Percutaneous Approach (ICD-10-PCS; principal; 2023-12-08)
DX: R51.9 Headache, unspecified (principal); M54.2 Cervicalgia; M25.511 Pain in right shoulder; M79.10 Myalgia, unspecified site
CPT/HCPCS: 96372; 99284-25